=== PATIENT | female | born 1980 | race Caucasian/White ===

== ENCOUNTER → 2021-03-21 | Outpatient (CLI) | payer OTHER ==
[~2021-03-21] MED LIST: ACETAZOLAMIDE250 M1 PO; ADVIL200 M3 PO; BENTYL 10 MG CA10 MG PO; BUPROPION; BUSPIRONE HCL15 MG PO; CARAFATE1 GM/10 ML PO; FLONASE 0.05%50 MCG NASAL; HYDROCODON-ACE1 EACH; NAPROSYN500 MG PO; NORCO 5-325 TA1 EACH PO; NORTRIPTYLINE H25 M3 PO; PEPCID40 MG PO; PRILOSEC40 MG; PROTONIX40 M4 PO; SINGULAIR 10 MG10 M1 PO; VENLAFAXINE HC150 M1 PO; VICODIN 5-5001 EACH PO; ZANTAC 150MG T150 M1; ZOFRAN ODT4 MG PO; ZOFRAN4 MG PO; ZOLOFT100 MG; [UNRECOGNIZED DRUG - OTHER]
== END ==
LOC: M.LAB 16:36
PROVIDERS: ATTEND Internal Medicine Gastroenterology
DX: Z01.812 Encounter for preprocedural laboratory examination (principal); Z20.822 Contact with and (suspected) exposure to COVID-19

== ENCOUNTER → 2021-03-22 | Day surgery (SDC) | payer OTHER ==
--- NOTE | ~2021-03-22 | PROC ---
[address] [address] PROCEDURE REPORT Name: VISHNU POWERS Room: [facility]#: [id number] Admission: 03/22/21 Attend Phys: Micha Carr DO Discharge: Date of : 76 Report #: [id number] THIS REPORT FOR: cc: Alexandra Stone MD, Emily G. MD [facility],Medical Records Staff ~ For GI report, please see the Provation report in Per[employer] 7 content. By: 0655Medical Records Staff STEVE /JAZMYNE
--- NOTE | 2021-03-27 14:06 | PATH ---
[facility] [address] [place] [address] PATHOLOGY RPT PROCEDURE Name: MARTHA POWERS Room: [facility]#: [id number] Admission: 03/22/21 Date of : 76 Discharge: Report #: [id number] Path Case #: [id number] [facility] Accession Number: [id number] . 01 Material submitted: . PART A: esophagus - ESOPHAGEAL BIOPSY AT 35 CM PART B: esophagus - ESOPHAGEAL BIOPSY 30 CM . 01 Clinical history: . EGD IN OR DYSPHAGIA . 02 Diagnosis: A, B - Esophageal biopsy at 35 cm and esophageal biopsy at 30 cm: - Normal esophageal mucosa. (FRANK:rodger; 03/24/2021) QMS 03/24/2021 1004 Local . 02 Electronically signed: . Iron Nicholson MD, Pathologist NPI- [id number] . 01 Gross description: . A. The specimen is received in formalin, labeled "Martha Powers, esophageal biopsy at 35 cm". Received are 2 segments of pale steven tissue measuring 0.2 and 0.3 cm in maximum dimensions. The specimen is entirely submitted in cassette A1. . B. The specimen is received in formalin, labeled "Martha Powers, esophageal biopsy at 30 cm". Received are 2 segments of pale steven tissue both measuring 0.3 cm in maximum dimensions. The specimen is entirely submitted in cassette B1. ([facility]; 03/22/2021) NRI/NRI 03/22/2021 2152 Local . 02 Pathologist provided ICD-10: R13.10 . 02 CPT . 542891, [id number] Specimen Comment: A courtesy copy of this report has been sent to [phone] Specimen Comment: [id number] Specimen Comment: Report sent to / DR GLYNN Specimen Comment: A duplicate report has been generated due to demographic updates. Performed at: [address] [place] [address] PATHOLOGY RPT PROCEDURE Name: MARTHA POWERS Room: [facility]#: [id number] Admission: 03/22/21 Date of : 76 Discharge: Report #: [id number] Path Case #: [id number] [address] [address], [place], [place] [id number] MD Mitch Perera MD Phone: [phone] Performed at: 02 [facility] [address], [place], [place] [id number] MD Iron Nicholson MD Phone: [phone]
== END | disposition home or self-care (01) ==
LOC: M.SUR 03-13 15:28
PROVIDERS: ATTEND Internal Medicine Gastroenterology
DX: R13.14 Dysphagia, pharyngoesophageal phase (principal); R07.9 Chest pain, unspecified; Z98.890 Other specified postprocedural states; Z79.899 Other long term (current) drug therapy; Z88.8 Allergy status to other drugs, medicaments and biological substances